=== PATIENT | male | born 1965 | race African-American/Black ===

== ENCOUNTER 2017-04-29 09:55 | Inpatient (IN) | payer OTHER ==
[2017-04-29 09:58] VITALS: BMI 24.3
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
[2017-04-29] MEDS ORDERED: LOPERAMIDE HCL 2 MG CAPSULE PO PRN (11:02)
[2017-04-29] MEDS ORDERED: chlordiazePOXIDE HCL 25 MG CAPSULE PO PRN (11:02)
[2017-04-29] MEDS ORDERED: MENTHOL/PHENOL 1 EACH UD MM PRN (11:02)
[2017-04-29] MEDS ORDERED: ACETAMINOPHEN 325 MG TABLET (FP) PO PRN (11:02)
[2017-04-29] MEDS ORDERED: MAGNESIUM CITRATE 300 ML BOTTLE PO PRN (11:02)
[2017-04-29] MEDS ORDERED: MAG HYDROX/AL HYDROX/SIMETH 30 ML UNIT-DOSE CUP PO PRN (11:02)
[2017-04-29] MEDS ORDERED: P-EPHED 60MG/TRIPROLIDI 2.5MG TABLET PO PRN (11:02)
[2017-04-29] MEDS ORDERED: hydrOXYzine PAMOATE 25 MG CAPSULE (FP) PO PRN (11:02)
[2017-04-29] MEDS ORDERED: IBUPROFEN 400 MG TABLET (FP) PO PRN (11:02)
[2017-04-29] MEDS ORDERED: MAGNESIUM HYDROX 2400MG/30ML ORAL SUSPENSION 30 ML CUP PO PRN (11:02)
[2017-04-29] MEDS ORDERED: guaiFENesin/D-METHORPHAN HB 10 ML UNIT-DOSE CUPS PO PRN (11:02)
[2017-04-29] MEDS ORDERED: chlordiazePOXIDE HCL 25 MG CAPSULE PO ONE (13:00)
[2017-04-29] MEDS: chlordiazePOXIDE HCL 25 MG CAPSULE PO SCH ×2 (16:52→23:07)
[2017-04-29] MEDS ORDERED: DIVALPROEX NA *ER* EXTEND REL 500 MG TABLET.SA (FP) PO ONE (17:12)
[2017-04-29] MEDS ORDERED: PATIENT'S OWN MEDICATION (NON-FORMULARY) (Simvastatin 20 MG) PO SCH (22:00)
[2017-04-29] MEDS: THIAMINE HCL 100 MG TABLET (FP) PO SCH (23:07)
[2017-04-29] MEDS: ATORVASTATIN CA 10 MG TABLET (FP) PO SCH (23:07)
[2017-04-29] MEDS: DIVALPROEX NA *ER* EXTEND REL 500 MG TABLET.SA (FP) PO SCH (23:07)
[2017-04-30 00:21] LABS: URINE APPEARANCE CLEAR; URINE BILIRUBIN NEGATIVE (NEGATIVE); URINE BLOOD NEGATIVE (NEGATIVE); URINE COLOR YELLOW; URINE GLUCOSE (UA) NEGATIVE (NEGATIVE); URINE KETONE 1+ (NEGATIVE); URINE LEUK ESTERASE NEGATIVE (NEGATIVE); URINE NITRITE NEGATIVE (NEGATIVE); URINE PROTEIN NEGATIVE (NEGATIVE)
[2017-04-30] MEDS: chlordiazePOXIDE HCL 25 MG CAPSULE PO SCH ×4 (05:50→23:30)
--- NOTE | 2017-04-30 08:57 | EKG ---
Test Reason : Blood Pressure : / mmHG Vent. Rate : 073 BPM Atrial Rate : 073 BPM P-R Int : 146 ms QRS Dur : 086 ms QT Int : 368 ms P-R-T Axes : 073 022 053 degrees QTc Int : 405 ms NORMAL SINUS RHYTHM WITH SINUS ARRHYTHMIA NORMAL ECG NO PREVIOUS ECGS AVAILABLE Confirmed by SOLITARIO MCGHEE, CORTNEY ([id number]) on 04/30/2017 8:56:33 AM Referred By: Confirmed By:CORTNEY JEREZ MD
[2017-04-30] MEDS ORDERED: LOSARTAN 50MG/HCTZ 12.5MG 1 TAB (FP) PO SCH (10:00)
[2017-04-30 10:08] LABS: ALBUMIN 4.2 g/dl (3.4-5.0); ANION GAP 11 (8-16); CALCIUM 8.7 mg/dL (8.5-10.1); CO2 26 mmol/L (21-32); GLUCOSE,RANDOM 79 mg/dL (74-106); SGOT/AST 42 U/L (15-37); SGPT/ALT 50 U/L (12-78)
[2017-04-30 10:10] LABS: ALK PHOS 73 U/L (45-117); CREATININE 0.5 mg/dL (0.7-1.3); TOT PROT 7.3 g/dl (6.4-8.2)
[2017-04-30 10:22] LABS: MCH 34.1 pg (25.7-33.7); MCHC 33.8 g/dl (32.0-35.9); PLATELET COUNT 174 K/MM3 (134-434); RDW 13.3 % (11.9-15.9); WHITE BLOOD COUNT 5.1 K/mm3 (4.0-10.0)
[2017-04-30] MEDS: HYDROCHLOROTHIAZIDE 12.5 MG CAPSULE (FP) PO SCH (10:30)
[2017-04-30] MEDS: LOSARTAN POTASSIUM 50 MG TABLET (FP) PO SCH (10:30)
[2017-04-30] MEDS: PRENATAL VITAMINS W/ FOLIC ACID TABLET (FP) PO SCH (10:30)
[2017-04-30] MEDS: DIVALPROEX NA *ER* EXTEND REL 500 MG TABLET.SA (FP) PO SCH ×2 (10:30→23:29)
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
[2017-04-30] MEDS ORDERED: COLLOIDAL OATMEAL 1 BAR EACH TP PRN (11:43)
[2017-04-30] MEDS ORDERED: ZOLPIDEM TARTRATE 5 MG TABLET PO PRN (12:05)
[2017-04-30 12:59] LABS: URINE LEUK ESTERASE NEGATIVE (NEGATIVE)
--- NOTE | 2017-04-30 16:43 | PN ---
S CIWA - CIWA Score Nausea/Vomitin Muscle Tremors: 4-Moderate,w/Arms Extend Anxiety: 4-Mod. Anxious/Guarded Agitation: 5 Paroxysmal Sweats: 3 Orientation: 0-Oriented Tacttile Disturbances: 1-Very Mild Itch/Numbness Auditory Disturbances: 0-None Visual Disturbances: 0-None Headache: 1-Very Mild CIWA-Ar Total Score: 21 BHS Progress Note (SOAP) Subjective: Cramps in hands, sweating, interrupted sleep Objective: 04/30/17 16:42 Last Vital Signs Temp Pulse Resp BP Pulse Ox 97.3 F L 86 18 116/79 04/30/17 10:51 04/30/17 10:51 04/30/17 10:51 04/30/17 10:51 Laboratory Tests 04/29/17 04/30/17 04/30/17 14:30 06:00 06:00 WBC 5.1 RBC 3.84 L Hgb 13.1 Hct 38.8 MCV 101.0 H MCH 34.1 H MCHC 33.8 RDW 13.3 Plt Count 174 MPV 10.0 Sodium 138 Potassium 3.8 Chloride 101 Carbon Dioxide 26 Anion Gap 11 BUN 7 Creatinine 0.5 L Creat Clearance w eGFR > 60 Random Glucose 79 Calcium 8.7 Total Bilirubin 1.0 AST 42 H ALT 50 Alkaline Phosphatase 73 Total Protein 7.3 Albumin 4.2 Urine Color Yellow Urine Appearance Clear Urine pH 5.0 Ur Specific [place] 1.016 Urine Protein Negative Urine Glucose (UA) Negative Urine Ketones 1+ H Urine Blood Negative Urine Nitrite Negative Urine Bilirubin Negative Urine Urobilinogen 2.0 Ur Leukocyte Esterase Negative RPR Titer 04/30/17 06:00 WBC RBC Hgb Hct MCV MCH MCHC RDW Plt Count MPV Sodium Potassium Chloride Carbon Dioxide Anion Gap BUN Creatinine Creat Clearance w eGFR Random Glucose Calcium Total Bilirubin AST ALT Alkaline Phosphatase Total Protein Albumin Urine Color Urine Appearance Urine pH Ur Specific [place] Urine Protein Urine Glucose (UA) Urine Ketones Urine Blood Urine Nitrite Urine Bilirubin Urine Urobilinogen Ur Leukocyte Esterase RPR Titer Nonreactive Labs noted Assessment: 04/30/17 16:43 Withdrawal symptoms Plan: Continue detox
[2017-04-30] MEDS ORDERED: ZOLPIDEM TARTRATE 10 MG TABLET (PARK CARE ONLY) PO PRN (19:29)
[2017-04-30] MEDS: THIAMINE HCL 100 MG TABLET (FP) PO SCH (23:30)
[2017-04-30] MEDS: risperiDONE 0.5 MG TABLET (FP) PO SCH (23:30)
[2017-04-30] MEDS: ATORVASTATIN CA 10 MG TABLET (FP) PO SCH (23:30)
[2017-05-01] MEDS: chlordiazePOXIDE HCL 25 MG CAPSULE PO SCH ×2 (06:27→10:23)
[2017-05-01] MEDS: PRENATAL VITAMINS W/ FOLIC ACID TABLET (FP) PO SCH (09:36)
[2017-05-01] MEDS: DIVALPROEX NA *ER* EXTEND REL 500 MG TABLET.SA (FP) PO SCH ×2 (09:36→22:04)
[2017-05-01] MEDS: risperiDONE 0.5 MG TABLET (FP) PO SCH ×2 (09:37→22:04)
[2017-05-01] MEDS: SERTRALINE HCL 50 MG TABLET (FP) PO SCH (09:38)
[2017-05-01] MEDS: LOSARTAN POTASSIUM 50 MG TABLET (FP) PO SCH (09:39)
[2017-05-01] MEDS: HYDROCHLOROTHIAZIDE 12.5 MG CAPSULE (FP) PO SCH (09:39)
--- NOTE | 2017-05-01 11:44 | PN ---
S CIWA - CIWA Score Nausea/Vomitin Muscle Tremors: None Anxiety: 5 Agitation: 5 Paroxysmal Sweats: 2 Orientation: 0-Oriented Tacttile Disturbances: 0-None Auditory Disturbances: 0-None Visual Disturbances: 0-None Headache: 3-Moderate CIWA-Ar Total Score: 20 BHS Progress Note (SOAP) Subjective: Anxious, H/A, Sweating, Vomiting. Objective: PT. A & O X 3, OBSERVED AMBULATING ON UNIT WITH ASSISTANCE OF A WALKER. NO ACUTE DISTRESS. PT. DENIES HISTORY OF HYPOTENSION. 05/01/17 11:41 Vital Signs Temperature 97.1 F L 05/01/17 09:18 Pulse Rate 100 H 05/01/17 09:18 Respiratory Rate 18 05/01/17 09:18 Blood Pressure 91/56 05/01/17 09:18 O2 Sat by Pulse Oximetry (%) Laboratory Tests 04/29/17 04/30/17 04/30/17 14:30 06:00 06:00 WBC 5.1 RBC 3.84 L Hgb 13.1 Hct 38.8 MCV 101.0 H MCH 34.1 H MCHC 33.8 RDW 13.3 Plt Count 174 MPV 10.0 Sodium 138 Potassium 3.8 Chloride 101 Carbon Dioxide 26 Anion Gap 11 BUN 7 Creatinine 0.5 L Creat Clearance w eGFR > 60 Random Glucose 79 Calcium 8.7 Total Bilirubin 1.0 AST 42 H ALT 50 Alkaline Phosphatase 73 Total Protein 7.3 Albumin 4.2 Urine Color Yellow Urine Appearance Clear Urine pH 5.0 Ur Specific [place] 1.016 Urine Protein Negative Urine Glucose (UA) Negative Urine Ketones 1+ H Urine Blood Negative Urine Nitrite Negative Urine Bilirubin Negative Urine Urobilinogen 2.0 Ur Leukocyte Esterase Negative RPR Titer 04/30/17 06:00 WBC RBC Hgb Hct MCV MCH MCHC RDW Plt Count MPV Sodium Potassium Chloride Carbon Dioxide Anion Gap BUN Creatinine Creat Clearance w eGFR Random Glucose Calcium Total Bilirubin AST ALT Alkaline Phosphatase Total Protein Albumin Urine Color Urine Appearance Urine pH Ur Specific [place] Urine Protein Urine Glucose (UA) Urine Ketones Urine Blood Urine Nitrite Urine Bilirubin Urine Urobilinogen Ur Leukocyte Esterase RPR Titer Nonreactive LABS NOTED. Assessment: 05/01/17 11:42 WITHDRAWAL SYMPTOMS. HYPOTENSION. Plan: CONTINUE DETOX. INCREASE DAILY PO FLUID INTAKE. ASSESS VS Q 2 HOURS UNTIL BP STABILIZES.
[2017-05-01] MEDS: chlordiazePOXIDE 5 MG CAPSULE PO SCH ×2 (17:41→22:04)
[2017-05-01] MEDS: ATORVASTATIN CA 10 MG TABLET (FP) PO SCH (22:04)
[2017-05-01] MEDS: THIAMINE HCL 100 MG TABLET (FP) PO SCH (22:04)
[2017-05-02] MEDS: chlordiazePOXIDE 5 MG CAPSULE PO SCH ×2 (06:08→10:27)
--- NOTE | 2017-05-02 09:39 | PN ---
BHS Progress Note (SOAP) Subjective: sweat tremor insomnia Objective: 05/02/17 09:38 Vital Signs Temperature 97 F L 05/02/17 09:09 Pulse Rate 80 05/02/17 09:09 Respiratory Rate 20 05/02/17 09:09 Blood Pressure 103/71 05/02/17 09:09 O2 Sat by Pulse Oximetry (%) Laboratory Last Values WBC 5.1 K/mm3 (4.0-10.0) 04/30/17 06:00 RBC 3.84 M/mm3 (4.00-5.60) L 04/30/17 06:00 Hgb 13.1 GM/dL (11.7-16.9) 04/30/17 06:00 Hct 38.8 % (35.4-49) 04/30/17 06:00 MCV 101.0 fl (80-96) H 04/30/17 06:00 MCH 34.1 pg (25.7-33.7) H 04/30/17 06:00 MCHC 33.8 g/dl (32.0-35.9) 04/30/17 06:00 RDW 13.3 % (11.9-15.9) 04/30/17 06:00 Plt Count 174 K/MM3 (134-434) 04/30/17 06:00 MPV 10.0 fl (7.5-11.1) 04/30/17 06:00 Sodium 138 mmol/L (136-145) 04/30/17 06:00 Potassium 3.8 mmol/L (3.5-5.1) 04/30/17 06:00 Chloride 101 mmol/L (98-107) 04/30/17 06:00 Carbon Dioxide 26 mmol/L (21-32) 04/30/17 06:00 Anion Gap 11 (8-16) 04/30/17 06:00 BUN 7 mg/dL (7-18) 04/30/17 06:00 Creatinine 0.5 mg/dL (0.7-1.3) L 04/30/17 06:00 Creat Clearance w eGFR > 60 (>60) 04/30/17 06:00 Random Glucose 79 mg/dL (74-106) 04/30/17 06:00 Calcium 8.7 mg/dL (8.5-10.1) 04/30/17 06:00 Total Bilirubin 1.0 mg/dL (0.2-1.0) 04/30/17 06:00 AST 42 U/L (15-37) H 04/30/17 06:00 ALT 50 U/L (12-78) 04/30/17 06:00 Alkaline Phosphatase 73 U/L (45-117) 04/30/17 06:00 Total Protein 7.3 g/dl (6.4-8.2) 04/30/17 06:00 Albumin 4.2 g/dl (3.4-5.0) 04/30/17 06:00 Urine Color Yellow 04/29/17 14:30 Urine Appearance Clear 04/29/17 14:30 Urine pH 5.0 (5.0-8.0) 04/29/17 14:30 Ur Specific [place] 1.016 (1.001-1.035) 04/29/17 14:30 Urine Protein Negative (NEGATIVE) 04/29/17 14:30 Urine Glucose (UA) Negative (NEGATIVE) 04/29/17 14:30 Urine Ketones 1+ (NEGATIVE) H 04/29/17 14:30 Urine Blood Negative (NEGATIVE) 04/29/17 14:30 Urine Nitrite Negative (NEGATIVE) 04/29/17 14:30 Urine Bilirubin Negative (NEGATIVE) 04/29/17 14:30 Urine Urobilinogen 2.0 mg/dL (0.2-1.0) 04/29/17 14:30 Ur Leukocyte Esterase Negative (NEGATIVE) 04/29/17 14:30 RPR Titer Nonreactive (NONREACTIVE) 04/30/17 06:00 lab noted Assessment: 05/02/17 09:38 mild withdrawal sx Plan: observation with detox regimen
[2017-05-02] MEDS: risperiDONE 0.5 MG TABLET (FP) PO SCH ×2 (10:26→22:44)
[2017-05-02] MEDS: PRENATAL VITAMINS W/ FOLIC ACID TABLET (FP) PO SCH (10:26)
[2017-05-02] MEDS: SERTRALINE HCL 50 MG TABLET (FP) PO SCH (10:26)
[2017-05-02] MEDS: DIVALPROEX NA *ER* EXTEND REL 500 MG TABLET.SA (FP) PO SCH ×2 (10:26→22:44)
[2017-05-02] MEDS: LOSARTAN POTASSIUM 50 MG TABLET (FP) PO SCH (10:26)
[2017-05-02] MEDS: HYDROCHLOROTHIAZIDE 12.5 MG CAPSULE (FP) PO SCH (10:27)
[2017-05-02] MEDS: chlordiazePOXIDE HCL 10 MG CAPSULE PO SCH ×2 (17:28→22:46)
[2017-05-02] MEDS: ATORVASTATIN CA 10 MG TABLET (FP) PO SCH (22:44)
[2017-05-02] MEDS: THIAMINE HCL 100 MG TABLET (FP) PO SCH (22:44)
[2017-05-03 06:15] VITALS: BP 90/55; PULSE 62; TEMP 96.3
[2017-05-03] MEDS: chlordiazePOXIDE HCL 10 MG CAPSULE PO SCH (06:47)
--- NOTE | 2017-05-03 12:21 | DS ---
[facility] Detox Discharge Summary Admission Date: 04/29/17 Discharge Date: 05/03/17 - Physical Exam Results Vital Signs: Vital Signs Temperature 96.3 F L 05/03/17 06:14 Pulse Rate 62 05/03/17 06:14 Respiratory Rate 16 05/03/17 06:14 Blood Pressure 90/55 05/03/17 06:14 O2 Sat by Pulse Oximetry (%) - Treatment Hospital Course: Detox Protocol Followed, Detoxed Safely, Responded well, Discharged Condition Good - Medication Discharge Medications: Ambulatory Orders Divalproex *ER* [Depakote *ER* -] 500 mg PO BID 04/29/17 Losartan/Hydrochlorothiazide [Losartan-Hctz 50-12.5 mg Tab] 1 each PO DAILY 02/05 Risperidone [Risperdal -] 0.5 mg PO BID 04/29/17 Simvastatin [Zocor -] 20 mg PO HS 04/29/17 Risperidone [Risperdal -] 0.5 mg PO BID #60 tablet 04/30/17 Sertraline HCl [Zoloft -] 50 mg PO DAILY #30 tablet 04/30/17 - AMA Did Patient Leave Against Medical Advice: No
== END 2017-05-03 07:16 | disposition home or self-care (01) | DRG 775 ==
LOC: YASAS 09:55 → Y3N 11:53
PROVIDERS: ADMIT Internal Medicine; ATTEND Internal Medicine
PROC: HZ2ZZZZ Detoxification Services for Substance Abuse Treatment (ICD-10-PCS; principal; 2017-04-29)
DX: F10.230 Alcohol dependence with withdrawal, uncomplicated (principal); F10.24 Alcohol dependence with alcohol-induced mood disorder; F33.9 Major depressive disorder, recurrent, unspecified; F20.9 Schizophrenia, unspecified; G47.00 Insomnia, unspecified; I10 Essential (primary) hypertension; E78.5 Hyperlipidemia, unspecified; R26.89 Other abnormalities of gait and mobility; Z99.89 Dependence on other enabling machines and devices; Z87.820 Personal history of traumatic brain injury; R53.1 Weakness
CPT/HCPCS: 36415; 80053; 81003; 85027; 86593; 93005; 93010

== ENCOUNTER 2017-05-03 13:14 | Emergency (ER) | payer OTHER ==
[2017-05-03 13:25] VITALS: BMI 25.8
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
[2017-05-03] MEDS ORDERED: HALOPERIDOL LACTATE 5 MG/ML IM ONE (15:33)
[2017-05-03] MEDS ORDERED: HALOPERIDOL LACTATE 5 MG/ML ONE (15:33)
[2017-05-03] MEDS ORDERED: SODIUM CHLORIDE 0.9% 1000 ML INFUS.BAG IV ONE ×2 (19:05)
--- NOTE | 2017-05-03 19:11 | PDOC ---
*Physical Exam - Vital Signs Last Vital Signs Temp Pulse Resp BP Pulse Ox 97.4 F L 93 H 16 128/83 100 05/03/17 13:45 05/03/17 13:45 05/03/17 13:45 05/03/17 13:45 05/03/17 13:45 ED Treatment Course - Medications Given in the ED: ED Medications Discontinued Medications Generic Name Dose Route Start Last Admin Trade Name Freq PRN Reason Stop Dose Admin Haloperidol 5 mg 05/03/17 15:33 05/03/17 15:50 Haldol Injection (Fast Acting) - IM 05/03/17 15:34 5 mg ONCE ONE Administration Lorazepam 2 mg 05/03/17 15:33 05/03/17 15:50 Ativan Injection - IM 05/03/17 15:34 2 mg ONCE ONE Administration Medical Decision Making - Medical Decision Making 05/03/17 19:12 Patient signed out by Dr. Redmond (Resident) and under the care
--- NOTE | 2017-05-03 19:12 | PDOC ---
*Physical Exam - Vital Signs Last Vital Signs Temp Pulse Resp BP Pulse Ox 97.4 F L 93 H 16 128/83 100 05/03/17 13:45 05/03/17 13:45 05/03/17 13:45 05/03/17 13:45 05/03/17 13:45 - Physical Exam Comments: 05/03/17 19:13 gen: arousable, speaking in clear sentences, smell of etoh on his breath heart: +s1s2 reg Lungs: cta b/l abd: soft, nt/nd +bs Ext: no c/c/e, moving all extremities neuro: cn intact, no focal deficits, sensation intact ED Treatment Course - LABORATORY CBC & Chemistry Diagram: 05/03/17 19:05 05/03/17 19:05 - Medications Given in the ED: ED Medications Discontinued Medications Generic Name Dose Route Start Last Admin Trade Name Freq PRN Reason Stop Dose Admin Haloperidol 5 mg 05/03/17 15:33 05/03/17 15:50 Haldol Injection (Fast Acting) - IM 05/03/17 15:34 5 mg ONCE ONE Administration Lorazepam 2 mg 05/03/17 15:33 05/03/17 15:50 Ativan Injection - IM 05/03/17 15:34 2 mg ONCE ONE Administration Medical Decision Making - Critical Care Time Total Critical Care Time (minutes): 30 Critical Care Statement: The care of this patient involved high complexity decision making to prevent further life threatening deterioration of the patient 's condition and/or to evaluate & treat vital organ system(s) failure or risk of failure. - Medical Decision Making 05/03/17 19:07 pt signed out pending re-eval, metabolism of etoh, ct head and c spine called by radiology that poss hypodense area to frontal lobe concerning for poss traumatic blood call placed to neurosx will check labs, coags, plts, will give ivf hydriton ekg cardiac monitoring 05/03/17 19:[address] manzanares who recommends transfer to a trauma/ neurosurgical tertiary care center 05/03/17 19:53 case discusse kane Lang from [facility] - trauma accepts pt in transfer. discussed with the patient who gave verbal consent in front of 1:1 security sitter and nurse that he gives consent in transfer *DC/Admit/Observation/Transfer Diagnosis at time of Disposition: Intracranial bleed, Alcohol intoxication - Discharge Dispostion Disposition: TRANSFER ACUTE CARE/OTHER HOSP Condition at time of disposition: Fair - Referrals - Patient Instructions - Post Discharge Activity - Transfer to Acute Care Facility Receiving Facility: [facility].
[2017-05-03 19:41] LABS: BASOPHIL 0.1 % (0-2.0); EOSINOPHIL 0.8 % (0-4.5); MCH 34.2 pg (25.7-33.7); MCHC 33.8 g/dl (32.0-35.9); MEAN CELL VOLUME 101.1 fl (80-96); MEAN PLT VOLUME 9.1 fl (7.5-11.1); NEUTROPHILS 53.3 % (42.8-82.8); PLATELET COUNT 163 K/MM3 (134-434); WHITE BLOOD COUNT 3.6 K/mm3 (4.0-10.0)
[2017-05-03 19:56] LABS: INR 0.94 (0.82-1.09); PROTHROMBIN TIME (PATIENT) 10.6 SEC (9.98-11.88)
[2017-05-03 19:59] LABS: ACTIVATED PTT 39.6 SECONDS (26.9-34.4)
[2017-05-03 20:14] LABS: ALBUMIN 4.3 g/dl (3.4-5.0); ANION GAP 8 (8-16); CO2 35 mmol/L (21-32); CREATININE 0.7 mg/dL (0.7-1.3); GLUCOSE,RANDOM 93 mg/dL (74-106); SGOT/AST 46 U/L (15-37)
[2017-05-03 20:32] LABS: ALK PHOS 67 U/L (45-117); BILIRUBIN,TOTAL 0.3 mg/dL (0.2-1.0); SGPT/ALT 80 U/L (12-78)
[2017-05-03 21:27] VITALS: BP 112/80; PULSE 80; TEMP 98
--- NOTE | 2017-05-04 11:33 | EKG ---
Test Reason : Blood Pressure : / mmHG Vent. Rate : 072 BPM Atrial Rate : 072 BPM P-R Int : 154 ms QRS Dur : 070 ms QT Int : 368 ms P-R-T Axes : 074 041 055 degrees QTc Int : 402 ms POOR DATA QUALITY, INTERPRETATION MAY BE ADVERSELY AFFECTED NORMAL SINUS RHYTHM NORMAL ECG WHEN COMPARED WITH ECG OF 29-APR-2017 14:53, NO SIGNIFICANT CHANGE WAS FOUND Confirmed by GRACIE MCGHEE, JOE ([id number]) on 05/04/2017 11:33:09 AM Referred By: Confirmed By:JOE BOWMAN MD
== END 2017-05-03 21:33 | disposition short-term general hospital (02) ==
LOC: JER 13:14
PROC: 3E033NZ Introduction of Analgesics, Hypnotics, Sedatives into Peripheral Vein, Percutaneous Approach (ICD-10-PCS; principal; 2017-05-03)
PROC: 3E033GC Introduction of Other Therapeutic Substance into Peripheral Vein, Percutaneous Approach (ICD-10-PCS; 2017-05-03)
PROC: 3E0337Z Introduction of Electrolytic and Water Balance Substance into Peripheral Vein, Percutaneous Approach (ICD-10-PCS; 2017-05-03)
DX: I61.9 Nontraumatic intracerebral hemorrhage, unspecified (principal); I10 Essential (primary) hypertension; E78.5 Hyperlipidemia, unspecified; I63.9 Cerebral infarction, unspecified
CPT/HCPCS: 36415; 70450-TC; 71010-TC; 72125-TC; 80053; 80307; 85025; 85610; 85730; 93005; 93010; 99284-25